=== PATIENT | male | born 1970 ===

== ENCOUNTER 2021-09-27 14:03 | Outpatient (CLI) | payer BC, SELFPAY ==
--- NOTE | 2021-09-27 13:45 | DI.RAD_ITS ---
Exam(s) XR KNEE LT 3V AP,LAT,JENNY EXAM: XR KNEE LT 3V AP,LAT,JENNY CLINICAL HISTORY: pain. TECHNIQUE: 2D digital imaging was performed. COMPARISON: No exams were available for comparison FINDINGS: Of knee reveal no fracture nor obvious joint. There are moderate degenerative changes in the lateral and patellofemoral compartments. Mild degenerative changes evident in the medial compartment. Ther e appears to be a small osteochondral defect on the inner aspect the lateral femoral condyle IMPRESSION: DATA REPOSITORY: RADIATION DOSE DELIVERED:
--- NOTE | 2021-09-27 13:45 | DI.RAD_ITS ---
Exam(s) XR KNEE RT 3V AP,LAT,JENNY EXAM: XR KNEE RT 3V AP,LAT,JENNY CLINICAL HISTORY: pain. TECHNIQUE: 2D digital imaging was performed. COMPARISON: No exams were available for comparison FINDINGS: Views of fracture prominent joint effusion no joint space narrowing. No osteophytes. Bone density n ormal. No osseous lesions IMPRESSION: DATA REPOSITORY: RADIATION DOSE DELIVERED:
== END 2021-09-27 14:04 | disposition home or self-care (01) ==
LOC: DIORS 14:03
PROVIDERS: PCP Family Medicine; Referring Provider Family Medicine; Visit Provider Physician Assistant Surgical
DX: M25.561 Pain in right knee (principal); M25.562 Pain in left knee; M17.12 Unilateral primary osteoarthritis, left knee; M21.862 Other specified acquired deformities of left lower leg
CPT/HCPCS: 73562

== ENCOUNTER → 2023-06-27 18:38 | Outpatient (CLI) | payer BC, SELFPAY ==
--- NOTE | 2023-06-27 | DI.RAD_ITS ---
Exam(s) XR KNEE LT 3V AP,LAT,JENNY EXAM: XR KNEE LT 3V AP,LAT,JENNY CLINICAL HISTORY: LEFT KNEE PAIN-M25.562. TECHNIQUE: 2D digital imaging was performed. COMPARISON: CR XR KNEE RT 3V AP,LAT,JENNY from 09/27/2021 CR XR KNEE LT 3V AP,LAT,JENNY from 09/27/2021 FINDINGS: 3 views No evidence of fracture. Small joint effusion noted. There is again noted moderate degenerative kristie nge in the lateral compartment appearing unchanged from September 2021. Milder degenerative change in the medial and patellofemoral compartments. Bone density normal. No osseous lesions. IMPRESSION: Degenerative changes as above but unchanged radiographically from 09/27/2021. Small joint effusion. DATA REPOSITORY: RADIATION DOSE DELIVERED:
== END ==
PROVIDERS: PCP Family Medicine; Visit Provider Nurse Practitioner Family
DX: M17.12 Unilateral primary osteoarthritis, left knee (principal)
CPT/HCPCS: 73562

== ENCOUNTER 2024-02-06 05:30 | Emergency (ER) | payer BC, SELFPAY ==
[2024-02-06 05:30] VITALS: BP 168/80; PULSE 76; RESP 16; TEMP 35.9
--- NOTE | 2024-02-06 05:32 | W.ED.GENAD ---
Discharge Plan Discharge Details Chief Complaint: FlankPain Clinical Impression: Calculus, ureteral Primary Care Provider: Lynda Garcia ED Provider: Yuan Mcnally Hamler Meds and New Rx's Prescriptions: No Action atorvastatin 40 mg tablet 40 mg PO DAILY metformin 500 mg tablet 500 mg PO DAILY Ozempic 0.25 mg or 0.5 mg (2 mg/3 mL) pen injector 0.25 mg subcut QWEEK Rx Instructions: for 4 weeks aspirin [Adult Aspirin Regimen] 81 mg tablet,delayed release (DR/EC) 81 mg PO DAILY clopidogrel [Plavix] 75 mg tablet 75 mg PO DAILY duloxetine 60 mg capsule,delayed release(DR/EC) 60 mg PO DAILY hydrochlorothiazide 50 mg tablet 50 mg PO DAILY losartan 100 mg tablet 100 mg PO DAILY metoprolol succinate 50 mg tablet extended release 24 hr 50 mg PO DAILY nitroglycerin 0.4 mg tablet, sublingual 0.4 mg sublingual Q5-15M PRN Rx Instructions: do not exceed 3 doses per episode oxybutynin chloride 5 mg tablet extended release 24hr 20 mg PO DAILY oxycodone 5 mg tablet 5 mg PO Q6H PRN (Reason: pain) HPI General Mode of arrival: ambulatory. Date/Time Provider Initiated Documentation: 02/06/24 05:32. Limitations to Documentation: no limitations. Information obtained by: patient, family ( provides majority of history) and RN notes reviewed. HPI Narrative: Patient presents to ED with right flank pain. Patient reports being seen in [place] over the weekend as they were visiting family down there. Was found to have a kidney stone and has been referred to [facility] [place]. They live up here and have been waiting to hear back from [facility] [place]. Pain became much worse overnight. He has associated nausea but no vomiting. He has had no fever that he is aware of. Just underwent cardiac stent about a week and a half ago. He has not experienced any chest pain or shortness of breath. He was not placed on tamsulosin. He has had kidney stones before and required procedure to remove 1 in the past. Related Data Home Medications Medication Instructions Recorded Confirmed aspirin 81 mg tablet,delayed 81 mg PO DAILY 02/06/24 02/06/24 release (Adult Aspirin Regimen) atorvastatin 40 mg tablet 40 mg PO DAILY 02/06/24 02/06/24 clopidogrel 75 mg tablet (Plavix) 75 mg PO DAILY 02/06/24 02/06/24 duloxetine 60 mg capsule,delayed 60 mg PO DAILY 02/06/24 02/06/24 release hydrochlorothiazide 50 mg tablet 50 mg PO DAILY 02/06/24 02/06/24 losartan 100 mg tablet 100 mg PO DAILY 02/06/24 02/06/24 metformin 500 mg tablet 500 mg PO DAILY 02/06/24 02/06/24 metoprolol succinate 50 mg 50 mg PO DAILY 02/06/24 02/06/24 tablet,extended release 24 hr nitroglycerin 0.4 mg sublingual 0.4 mg sublingual Q5-15M PRN 02/06/24 02/06/24 tablet oxybutynin chloride 5 mg 20 mg PO DAILY 02/06/24 02/06/24 tablet,extended release 24 hr oxycodone 5 mg tablet 5 mg PO Q6H PRN pain 02/06/24 02/06/24 semaglutide 0.25 mg or 0.5 mg (2 0.25 mg subcut QWEEK 02/06/24 02/06/24 mg/3 mL) subcutaneous pen injector (Ozempic) Allergies Allergy/AdvReac Type Severity Reaction Status Date / Time esomeprazole [From Nexium] Allergy Intermediate Other (See Verified 02/06/24 05:40 Comment) meperidine [From Demerol] Allergy Intermediate Other (See Verified 02/06/24 05:40 Comment) Review of Systems Narrative: per HPI Exam Narrative Exam Narrative: Const: Obese male in NAD, but uncomfortable. VS per triage. HEENT: NC/AT. Normal facial exam. Neck: Supple. Trachea midline. Lungs: Normal respiratory effort. Lungs are clear. Cor: RRR without murmur. Good radial pulses. GI: Soft/ND/NT. Neuro: A+O x 3. Normal speech, mentation, gait. Cranial nerves II - XII grossly intact. No gross motor or sensory deficit. Ext: No C/C/E. Medical Decision Making Patient presenting to ED with worsening right flank pain. Reports a known kidney stone that was diagnosed over the weekend down in [place]. Has been referred to [facility] [place] but has not received an appointment. Lives up here and presents to ED this morning because of continued pain despite taking oxycodone 10 mg few hours ago. IV established and fluids started. Ordered to receive morphine, ketorolac, and ondansetron. Will check CBC, BMP and urinalysis. Will reimage here as is reporting a large stone around 7 or 8 mm. Patient's white count is normal. Kidney function with a creatinine 1.2. Electrolytes are normal. Urinalysis still pending at this time. CT is complete and he does appear to have a proximal ureteral stone, per my review pending formal radiology read. Will sign over to oncoming ED physician Dr. Mcclain pending urinalysis results, formal CT read, reevaluation and possible discussion with urology here. Lab Data Lab results reviewed: Yes I reviewed the patient's lab results. Quality:SDOH Health Related Social Needs: No Data to Display [facility] All Active Problems (Updated 02/06/24 @ 07:41 by Yuan Mcnally MD) Calculus, ureteral (Acute) Medical History Kidney stones CAD (coronary artery disease) Diabetes mellitus Surgical History History of heart artery stent Social History Smoking risk assessment performed?: No
--- NOTE | 2024-02-06 05:45 | DI.CT_ITS ---
Exam(s) CT RENAL COLIC WO EXAM: CT RENAL COLIC WO CLINICAL HISTORY: history of stones/right flank pain. TECHNIQUE: Imaging Protocol: Axial computed tomography images with coronal and sagittal reformatted images were created and reviewed CONTRAST MATERIAL: Intravenous: none Oral: None COMPARISON: No exams were available for comparison FINDINGS: VISUALIZED LUNG BASES: There is a 3 millimeter nodule in the lateral basal segment of the left lower lobe. There is a faint 2 millimeter nodule in the lateral basal segment of the right lower lobe. No pleural effusions.. ABDOMEN: There is no ascites. LIVER: There are no obvious focal hepatic lesions evident of this noninfused study. GALLBLADDER/BILIARY: Gallbladder surgically absent. CBD is not dilated. PANCREAS: No evidence of pancreatic mass nor dilatation of the pancreatic duct. SPLEEN: Spleen size is minimally prominent, measuring 13.3 cm cephalocaudal. ADRENALS: No masses. KIDNEYS:There is an obstructing calculus in the upper right ureter at the ureteropelvic junction, thi s measuring 7 mm. There is dilatation of the ureter above this level and as well as hydronephrosis a nd some mild perinephric streaking. Another slightly larger XXXX calculus is also evident in the rig ht kidney. There is also a few calculi in the opposite-left kidney. No obstruction on the left side at this time. There appear to be parapelvic cysts in left kidney. There are no solid lesions in ei ther kidney. ABDOMINAL AORTA: Abdominal aorta is not enlarged. LYMPH NODES: There is no retroperitoneal nor paraaortic adenopathy. ABDOMINAL WALL: No evidence of significant anterior abdominal wall nor inguinal hernia. GI: There is no evidence of bowel obstruction, free air, nor abscess. PELVIS: LYMPH NODES: There is no intrapelvic nor inguinal adenopathy. GI: No evidence of appendicitis.No evidence of sigmoid diverticulitis. URINARY BLADDER: No calculi nor obvious masses evident REPRODUCTIVE: Prostate not enlarged. Seminal vesicles unremarkable. OSSEOUS: No significant osseous lesions. Multilevel chronic degenerative disc disease and scoliosis convex right in the lumbar spine. No frac tures. IMPRESSION: 1. Main acute finding is an obstructing 7 millimeter calculus in the upper right ureter at the ureter ovesical junction with dilatation of the right collecting system above this level and some ipsilatera l perinephric streaking. 2. There also additional presently nonobstructive calculi noted in both kidneys. 3. Gallbladder surgically absent. The biliary tree is not dilated. RADIATION DOSE DELIVERED: Total DLP DATA REPOSITORY: All CT scans at this facility are submitted to the National Radiology Data Registry (NRDR) Dose Index Registry (DIR) with the [employer] (ACR). RADIATION OPTIMIZATION: All CT scans at this facility use at least one of these dose optimization te chniques: automated exposure control; mA and/or kV adjustment per patient size (includes targeted exa ms where dose is matched to clinical indication); or iterative reconstruction.
[2024-02-06 06:03] LABS: Abs Immature Grans 0.02 10^3/uL (0.0-0.06); Absolute Basophil Count 0.03 10^3/uL (0.0-0.2); Absolute Eosinophil Count 0.18 10^3/uL (0.0-0.7); Absolute Lymphocyte Count 0.86 10^3/uL (1.2-3.4); Absolute Neutrophil Count 5.03 10^3/uL (1.2-6.7); Basophils % 0.4 %; Eosinophils % 2.7 %; HCT 38.5 % (40.0-50.0); HGB 13.4 g/dL (13.5-17.5); Immature Grans % 0.3 %; Lymphocytes % 12.8 %; MCHC 34.8 % (32.0-36.0); MCV 89 fL (80-95); MPV 11.1 fL (8.0-11.0); Monocytes % 8.9 %; Neutrophils % 74.9 %; Platelet Count 149 10^3/uL (130-400); RBC 4.32 10^6/uL (4.36-5.78); RDW 12.3 % (11.8-14.1); RDW-SD 40.2 fL; WBC 6.72 10^3/uL (4.4-10.8)
[2024-02-06] MEDS: Ketorolac 15 MG/ML VIAL IVP ×2 (06:10→10:27)
[2024-02-06] MEDS: Lactated Ringers 1,000 ML 1000 ML IV (06:10)
[2024-02-06] MEDS: Ondansetron 4 MG/2 ML VIAL IVP (06:11)
[2024-02-06] MEDS: MORPHine 4 MG/ML SYR IVP ×2 (06:11→10:28)
[2024-02-06 06:15] LABS: Anion Gap 9.2 mmol/L (3-11); BUN 22 mg/dL (7-18); CO2 27.8 mmol/L (21.0-32.0); CREATININE 1.2 mg/dL (0.70-1.30); Calcium 8.7 mg/dL (8.5-10.1); Chloride 105 mmol/L (98-107); Estimated GFR 70.98 (mL/min/1.73m2); Glucose 138 mg/dL (74-106); Potassium 3.7 mmol/L (3.5-5.1); Sodium 142 mmol/L (136-145)
--- NOTE | 2024-02-06 06:36 | TELEP.MEDR_ITS ---
Date of service: 02/06/24 Time of Service: 06:30 Telepharmacy Home Med Rec Allergies Allergies: esomeprazole [From Nexium] Allergy (Intermediate, Verified 02/06/24 05:40) Other (See Comment) meperidine [From Demerol] Allergy (Intermediate, Verified 02/06/24 05:40) Other (See Comment) Interview Person Interviewed: Spoke with nurse who interviewed pt; reported pt had no knowledge of medications. However, recently discharged from [facility] Quality Quality of Interview/Accuracy of Medication List: Poor Changes made to Home Medication List: ADDITIONS: Aspirin, Plavix, Duloxetine, HCTZ, Losartan, Metoprolol, Oxybutinin, Oxycodone, Nitroglycerin DELETIONS: None CHANGES: NOne Recommended Changes Attestation: The home medication list is now updated to the best of my knowledge and is ready to be reconciled by the provider. Please contact the TelePharmacy Medication Reconciliation Pharmacist at for any questions.
[2024-02-06 07:42] LABS: Bilirubin Negative (Negative); Blood Large (Negative); Clarity Sl Cloudy (Clear); Glucose Negative (Negative); Ketones Negative (Negative); Leukocyte Esterase Negative (Negative); Nitrite Negative (Negative); pH 5.5 (5-8)
[2024-02-06 07:55] LABS: Epithelial Cells Rare HPF (Negative); RBC 20-50 HPF (0-2); WBC 0-2 HPF (0-5)
[2024-02-06 07:56] LABS: Bacteria Few HPF (Negative); Crystals Negative HPF (Negative); Mucus Trace (Negative)
[2024-02-06 07:57] LABS: C & S Indicated? No
[2024-02-06 09:01] VITALS: BP 163/75; PULSE 63; RESP 18; TEMP 36.4; O2SAT 97
--- NOTE | 2024-02-06 09:17 | DI.VRAD_ITS ---
PROCEDURE INFORMATION: Exam: CT Abdomen And Pelvis Without Contrast Exam date and time: 02/06/2024 6:23 AM Age: 54 years old Clinical indication: Abdominal tenderness; Patient HX: HX of kidney stones/right flank pain TECHNIQUE: Imaging protocol: Computed tomography of the abdomen and pelvis without contrast. COMPARISON: No relevant prior studies available. FINDINGS: Lungs: Scattered basilar lung micronodularity. Heart: Base of heart is unremarkable as visualized. Coronary arteries: Moderate to severe calcified atherosclerotic disease of the visualized coronary vasculature. Liver: Hepatic steatosis. Gallbladder and bile ducts: Status post cholecystectomy. Pancreas: Normal. No ductal dilation. Spleen: Splenule is noted. Adrenal glands: Normal. No mass. Kidneys and ureters: Just beyond the right ureteropelvic junction there is a 8.5 mm calcified urinary stone. This stone results in upstream moderate ureterectasis, pelviectasis, moderate to severe right hydronephrosis. Fat stranding is noted around the right collecting system There is edematous hypertrophy of the right kidney with somewhat asymmetric right perinephric stranding. There is additional bilateral nonobstructive nephrolithiasis, appreciated in the posterior calyx of the right lower renal collecting system and lateral calyx of the left upper renal collecting system. Mild left hydronephrosis and left pelviectasis is noted without stone or mass to suggest acute obstruction. Stomach and bowel: Unremarkable. No obstruction. No mucosal thickening. Appendix: No evidence of appendicitis. Intraperitoneal space: Unremarkable. No free air. No significant fluid collection. Vasculature: Mild scattered calcified atherosclerotic disease of the visualized aorta and its major branches. Lymph nodes: Unremarkable. No enlarged lymph nodes. Urinary bladder: Bladder is significantly decompressed. Reproductive: Unremarkable as visualized. Bones/joints: Severe degenerative change of the visualized osseous structures. Soft tissues: Unremarkable. IMPRESSION: 1. Obstructing right urinary stone, just beyond the right ureteropelvic junction. Superimposed infection is not ruled out. 2. Additional nonobstructive bilateral nephrolithiasis as detailed above. 3. Likely chronic mild left hydronephrosis and left pelviectasis, of unknown etiology. 4. Scattered basilar lung micronodularity. For patients at low risk (minimal or absent history of smoking and of other known risk factors), no routine follow-up is indicated. For patients at high risk (history of smoking or of other known risk factors), consider optional CT Chest at 12 months. (Reference: Cayla) 5. Additional findings as above. REFERENCES: Cayla Kiran, et al. Guidelines for Management of Incidental Pulmonary Nodules Detected on CT Images: From the Fleischner Society 2017. Radiology. 2017;284(1):228-243. Dictated and Authenticated by: Yahir Dumont MD. Ordering:IRAJ Bolden MD
--- NOTE | 2024-02-06 10:00 | W.EDPROG ---
Date of service: 02/06/24 Time of Service: 10:00 Medical Decision Making Patient signed out to me pending CT read which does confirm a right-sided 7 mm obstructing kidney stone. UA not consistent with septic stone. I did consult our urologist Dr. Miller who reviewed the case and unfortunately because he had a stent just over a week ago he has to be 6 months from that procedure before they will do a nonemergent procedure here. Discussed results with patient and given he is not septic there is no clear indication for emergent transfer. I will place him on a follow-up list to see [facility] [place] urology as soon as possible. Will also extend his oxycodone. Return precautions given Quality:[facility] Health Related Social Needs: No Data to Display Sign Out Sign Out Data: Sign Out Comment: Patient presenting with right flank pain and reported known stone. Laboratory studies reassuring. CT does appear to show proximal ureteral stone pending formal radiology read. Urinalysis also pending at this time. Last updated by Yuan Mcnally MD at 02/06/24 07:43 Discharge Plan Disposition Patient Disposition: Home Condition: Stable Discharge Details Clinical Impression: Calculus, ureteral Primary Care Provider: Lynda Garcia ED Provider: Dmitry Mcclain Thor Meds and New Rx's Prescriptions: New oxycodone 5 mg tablet 5 mg PO TID PRN (Reason: pain) Qty: 10 0RF ondansetron 4 mg tablet,disintegrating 4 mg PO Q8H PRN (Reason: nausea and vomiting) Qty: 30 0RF Continued atorvastatin 40 mg tablet 40 mg PO DAILY metformin 500 mg tablet 500 mg PO DAILY Ozempic 0.25 mg or 0.5 mg (2 mg/3 mL) pen injector 0.25 mg subcut QWEEK Rx Instructions: for 4 weeks aspirin [Adult Aspirin Regimen] 81 mg tablet,delayed release (DR/EC) 81 mg PO DAILY clopidogrel [Plavix] 75 mg tablet 75 mg PO DAILY duloxetine 60 mg capsule,delayed release(DR/EC) 60 mg PO DAILY hydrochlorothiazide 50 mg tablet 50 mg PO DAILY losartan 100 mg tablet 100 mg PO DAILY metoprolol succinate 50 mg tablet extended release 24 hr 50 mg PO DAILY nitroglycerin 0.4 mg tablet, sublingual 0.4 mg sublingual Q5-15M PRN Rx Instructions: do not exceed 3 doses per episode oxybutynin chloride 5 mg tablet extended release 24hr 20 mg PO DAILY oxycodone 5 mg tablet 5 mg PO Q6H PRN (Reason: pain) Discharge Instructions Care Plan Goals: Unfortunately because of her recent cardiac stent we cannot perform nonemergent procedures at this hospital The patient on her follow-up list to try and expedite follow-up with [facility] [place] urology Return to the emergency department if you develop new symptoms such as high fevers or persistent vomiting
[2024-02-06 10:29] VITALS: BP 130/72; PULSE 59; RESP 16; O2SAT 100
[2024-02-06 10:38] VITALS: BP 130/72; PULSE 59; RESP 16; TEMP 36.4; O2SAT 100
[2024-02-06] MEDS: Normal Saline Flush 10 ML SYR IVP (10:39)
== END 2024-02-06 10:40 | disposition home or self-care (01) ==
PROVIDERS: Emergency Medicine; Emergency Provider Emergency Medicine
DX: N13.9 Obstructive and reflux uropathy, unspecified (principal); I25.10 Atherosclerotic heart disease of native coronary artery without angina pectoris; E11.9 Type 2 diabetes mellitus without complications; Z90.49 Acquired absence of other specified parts of digestive tract; Z79.82 Long term (current) use of aspirin; Z79.84 Long term (current) use of oral hypoglycemic drugs; Z79.85 Long-term (current) use of injectable non-insulin antidiabetic drugs; Z79.02 Long term (current) use of antithrombotics/antiplatelets
CPT/HCPCS: 00123; 36415; 80048; 96361; 96374; 96375; 96376; 99285; 74176; 81003; 81015; 85025; 99284; J1885; J2270; J2405